=== PATIENT | male | born 1965 | race Caucasian/White ===

== ENCOUNTER 2020-04-26 14:27 | Emergency (ER) | payer SELFPAY ==
--- NOTE | 2020-04-26 14:44 | Emergency Department Note ---
History of Present Illnes History of Present Illness History of Present Illness This is a 55 year old male arrived to the ED with cough fever. Pt also complaining of generalized malalise. 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 Any updates have been documented here. Past Medical History Recent Fever: Yes Clinical Suspicion of Infectio: Yes Social History Smoking Cessation: Current every day smoker Counseling Performed: Yes Alcohol Use: Social Review of Systems Review of Systems Constitutional: Reports as per HPI, Reports fever EENTM: Reports no symptoms Cardiovascular: Reports no symptoms Respiratory: Reports as per HPI, Reports cough, Reports dyspnea Gastrointestinal: Reports no symptoms Genitourinary: Reports no symptoms Musculoskeletal: Reports no symptoms Integumentary: Reports no symptoms Neurological: Reports no symptoms Psychological: Reports no symptoms Endocrine: Reports no symptoms Hematological/Lymphatic: Reports no symptoms Physical Exam Physical Exam CONSTITUTIONAL Constitutional: Present well-developed, Present well-nourished HENT HENT: Present normocephalic, Present atraumatic, Present oropharynx clear/moist, Present nose normal HENT L/R: Present left ext ear normal, Present right ext ear normal EYES Eyes: Reports PERRL, Reports conjunctivae normal NECK Neck: Present ROM normal PULMONARY Pulmonary: Present effort normal, Present breath sounds normal CARDIOVASCULAR Cardiovascular: Present regular rhythm, Present heart sounds normal, Present capillary refill normal, Present normal rate GASTROINTESTINAL Abdominal: Present soft, Present bowel sounds normal, Present tender GENITOURINARY Genitourinary: Present exam deferred SKIN Skin: Present warm, Present dry MUSCULOSKELETAL Musculoskeletal: Present ROM normal NEUROLOGICAL Neurological: Present alert, Present oriented x 3, Present no gross motor or sensory deficits PSYCHOLOGICAL Psychological: Present mood/affect normal, Present judgement normal Assessment & Plan Medical Decision Making MDM 55-year-old male allegedly ED with generalized malaise and abdominal pain, patient evaluated in the [address] There is a concern patient might have Covid19 as well as a possible intra- abdominal cause of pain/infection patient did not wish to wait any longer in the emergency department and wanted to be discharged home. Patient discharged home understands return precautions. Assessment & Plan Final Impression: (1) Abdominal pain Depart Disposition: HOME, SELF-CARE GRETCHEN JEAN-BAPTISTE, Apr 26, 2020 14:44
--- NOTE | 2020-04-26 16:32 | NUR ---
pt left stating he didn't want to wait any longer per another pt
== END 2020-04-26 14:45 | disposition home or self-care (01) ==
LOC: ER 14:45
DX: R10.84 Generalized abdominal pain (principal); R05 Cough; R50.9 Fever, unspecified; R53.81 Other malaise; F17.210 Nicotine dependence, cigarettes, uncomplicated
CPT/HCPCS: 99282